=== PATIENT | male | born 1955 | race Caucasian/White ===

== ENCOUNTER 2023-06-12 09:42 | Emergency (ER) | payer MEDICARE, OTHER, SELFPAY ==
--- NOTE | ~2023-06-12 | XR_ITS ---
XR wrist RT min 3V DATE: 06/12/2023 11:01 INDICATION: Right wrist pain; no injury. TECHNIQUE: 3 views COMPARISON: None FINDINGS: There is polyarticular osteoarthritis, involving the triscaphe, first carpometacarpal and f irst digit interphalangeal joints. Likely degenerative cystic change of the triquetrum. There is mild, calcinosis at the triangular cartilage and wrist joint. No fracture or dislocation, periosteal reaction or bone destruction is evident. IMPRESSION: Polyarticular osteophytosis Mild chondrocalcinosis Reviewed, dictated and finalized at location A. LAB[facility]ER
[2023-06-12 10:14] VITALS: BP 127/70; PULSE 100; RESP 18; TEMP 36.9; O2SAT 96
--- NOTE | 2023-06-12 10:55 | ED.UPPEXIN ---
HPI - Extremity Injury (Upper) General Chief Complaint: Extremity Injury, Upper Stated Complaint: right wrist injury last night Time Seen by Provider: 06/12/23 10:52 Source: patient History of Present Illness HPI narrative: 68 years old white male came to the emergency room by private car complaining of right wrist pain started after waking up from sleep this morning. Patient is telling me that he did work on his sister car and used drill to remove rust and dirt quite a bed yesterday and he did change car break. Woke up this morning with pain at the right wrist. He denies any injury or trauma. Related Data Allergies Allergy/AdvReac Type Severity Reaction Status Date / Time No Known Allergies Allergy Verified 06/12/23 09:43 Review of Systems Review of Systems: All systems reviewed & are unremarkable except as noted in HPI and below Exam Narrative: General appearance: Well-developed, well-nourished Skin: Normal color Head: Normocephalic, nontraumatic Eyes: Clear conjunctiva ENT: Oropharynx normal, ears normal, nose normal Neck: Supple, nontender Chest and respiratory: Airway patent, no respiratory distress, no accessory muscle use Heart: Regular rate/rhythm Abdomen: Soft, nontender, no organomegaly, quiet bowel sounds Vascular: Normal peripheral pulses, normal capillary refill. Musculoskeletal: Diffuse tenderness of the right wrist with limited range of motion because of pain, no swelling, no bruises or discoloration. Neurologic: Alert and oriented ?3, LATEX DIPPER is normal as tested, no gross motor deficit Course Vital Signs Vital signs: Vital Signs Temperature 36.9 C 06/12/23 10:14 Pulse Rate 100 06/12/23 10:14 Respiratory Rate 18 06/12/23 10:14 Blood Pressure 127/70 06/12/23 10:14 Pulse Oximetry 96 06/12/23 10:14 Oxygen Delivery Room Air 06/12/23 10:14 Temperature 36.9 C 06/12/23 10:14 Pulse Rate 100 06/12/23 10:14 Respiratory Rate 18 06/12/23 10:14 Blood Pressure 127/70 06/12/23 10:14 Pulse Oximetry 96 06/12/23 10:14 Oxygen Delivery Room Air 06/12/23 10:14 MDM - Extremity Injury (Upper) Imaging Data Radiologist's impression: Impressions Wrist X-Ray 01/07/24 11:15 IMPRESSION: Polyarticular osteophytosis Mild chondrocalcinosis Discharge Plan Discharge Clinical Impression: Right wrist sprain Patient Disposition: Home, Self-Care Condition: Stable Instructions: How to Use a Sling (ED), Splint Care (ED), Wrist Sprain (ED) Additional Instructions: Return if symptoms are worsening , call your family physician for appointment, take Tylenol as as needed for aches and pain, continue home medications. Keep right hand elevated, get wrist splint from [employer], [employer], or [employer] Prescriptions: New naproxen [Naprosyn] 500 mg tablet 500 mg PO BID PRN (Reason: pain) Qty: 14 0RF Follow-up/Referrals: PHYSICIAN,[facility] [Non-Staff] - Elijah Chan MD [Physician] - 06/16/23
[2023-06-12] MEDS: IBUPROFEN 600 MG TABLET PO (11:08)
[2023-06-12] MEDS: HYDROcodone/acetaminophen (*CRX) 5-325 MG TABLET 1 TAB PO (11:18)
== END 2023-06-12 12:10 | disposition home or self-care (01) ==
PROVIDERS: Emergency Provider Emergency Medicine
DX: S63.501A Unspecified sprain of right wrist, initial encounter (principal); M11.231 Other chondrocalcinosis, right wrist; M19.031 Primary osteoarthritis, right wrist; X50.3XXA Overexertion from repetitive movements, initial encounter
CPT/HCPCS: 73110; 99283; A9270